=== PATIENT | male | born 1960 | race Caucasian/White ===

== ENCOUNTER 2022-09-10 19:46 | Emergency (ER) | payer OTHER, SELFPAY ==
[2022-09-10] VITALS (9 sets, daily range): BP systolic 166–200; BP diastolic 91–110; PULSE 47–55; RESP 13–20; TEMP 36.9; O2SAT 96–100; BMI 32.6
--- NOTE | 2022-09-10 20:15 | ECG_ITS ---
The [facility] Test Date: 2022-09-10 Pat Name: DUNG AKERS Department: Room: - Gender: Male Roll Tender: : 1960 Requested By: JIA MARIEE Order Number: [id number] Reading MD: MIKEY HAWTHORNE Measurements Intervals Social Circle Rate: 49 P: 30 IL: 186 QRS: 21 QRSD: 94 T: 16 QT: 438 QTc: 408 Interpretive Statements 1130 Sinus bradycardia 3434 Septal myocardial infarction, age undetermined 9150 abnormal ECG No previous ECG available for comparison Electronically Signed On 09-11-2022 6:24:12 EDT by MIKEY HAWTHORNE
--- NOTE | 2022-09-10 20:15 | ED_ITS ---
HPI - General Adult General Chief complaint: Neuro Symptoms/Deficit Stated complaint: UPPER EXTREMITY NUMBNESS Time Seen by Provider: 09/10/22 20:15 Source: patient Mode of arrival: walk-in History of Present Illness HPI narrative: the patient is coming to the Emergency Room with a left thumb and index finger tingling that started yesterday he denies any complaint of headache nausea vomiting or any other concerns, he admitted recently coming from vacation ,denying any neck, but he admits of having cervical disc disease The patient denies any weakness numbness tingling or any double vision or headache or chest pain He denies any other complains and he mentioned that he have a history of hypertension but has not been taking his blood pressure for the last few years because he did not want to take it Review of systems otherwise negative Related Data Previous Rx's Medication Instructions Recorded hydrochlorothiazide 25 mg tablet 25 mg PO DAILY #14 tabs 09/10/22 prednisone 20 mg tablet 20 mg PO DAILY 3 days #3 tabs 09/10/22 Allergies Allergy/AdvReac Type Severity Reaction Status Date / Time No Known Drug Allergies Allergy Verified 09/10/22 19:52 Review of Systems ROS Status of ROS 10 or more systems reviewed and unremarkable except as noted in history and below [facility] Medical History (Updated 09/10/22 @ 22:12 by Thelma Alejo MD) Exam Narrative Exam Narrative: Nurses notes and vital signs reviewed and patient is not hypoxic. General: Well-appearing and in no apparent distress. Skin: Warm, dry, no pallor noted. No rash. Head: Normocephalic, atraumatic. Neck: Supple, non-tender. Eye: Pupils are equal, round and EOMI. No scleral icterus. Ears, Nose, Mouth, and Throat: TM are clear, no nasal mucosal hypertrophy. Oral mucosa is moist, no posterior oropharynx erythema, uvula is mid-line Cardiovascular: Regular Rate and Rhythm without murmur, gallop or rub. Respiratory: No accessory muscle use or respiratory distress. Lungs are clear to auscultation, no wheezing, rales or rhonchi Chest Wall: no tenderness Back: No midline thoracic or lumbar vertebral tenderness. No CVA tenderness Musculoskeletal: normal ROM, no calf or popliteal tenderness, no lower extremity edema/swelling GI: Abdomen is soft, non-distended. Normal bowel sounds. No masses appreciated. No tenderness to palpation. No rebound, guarding, or rigidity noted. Neurological: A&O x4. No cranial nerve dysfunction observed. No truncal ataxia. Moves all extremities. Sensation intact. Psychiatric: Cooperative and interactive. Normal mood and affect. Constitutional Vital Signs - 24 hr 09/10/22 19:53 09/10/22 21:37 09/10/22 21:40 Temperature 98.4 F Pulse Rate 54 L 50 L Pulse Rate [Monitor] 55 L Respiratory Rate 16 20 15 Blood Pressure Blood Pressure [Left Arm] 188/110 H Pulse Oximetry 96 100 Oxygen Delivery Method Room Air 09/10/22 21:41 09/10/22 22:01 09/10/22 22:31 Temperature Pulse Rate 49 L 48 L 48 L Pulse Rate [Monitor] Respiratory Rate 13 14 14 Blood Pressure 194/96 H 166/103 H 185/98 H Blood Pressure [Left Arm] Pulse Oximetry 97 Oxygen Delivery Method 09/10/22 22:31 09/10/22 23:01 09/10/22 23:06 Temperature Pulse Rate 48 L 55 L 47 L Pulse Rate [Monitor] Respiratory Rate 19 16 15 Blood Pressure 185/98 H 200/91 H 191/100 H Blood Pressure [Left Arm] Pulse Oximetry 97 Oxygen Delivery Method 09/10/22 23:06 09/10/22 23:16 Temperature Pulse Rate 48 L 49 L Pulse Rate [Monitor] Respiratory Rate 18 17 Blood Pressure 191/100 H 190/92 H Blood Pressure [Left Arm] Pulse Oximetry Oxygen Delivery Method Course Vital Signs Vital signs: Vital Signs Temperature 98.4 F 09/10/22 19:53 Pulse Rate 55 L 09/10/22 19:53 Respiratory Rate 16 09/10/22 19:53 Blood Pressure 188/110 H 09/10/22 19:53 Pulse Oximetry 96 09/10/22 19:53 Oxygen Delivery Method Room Air 09/10/22 19:53 Temperature 98.4 F 09/10/22 19:53 Pulse Rate 49 L 09/10/22 23:16 Respiratory Rate 17 09/10/22 23:16 Blood Pressure 190/92 H 09/10/22 23:16 Pulse Oximetry 97 09/10/22 23:01 Oxygen Delivery Method Room Air 09/10/22 19:53 Medical Decision Making MDM Narrative Medical decision making narrative: EKG was showing sinus rhythm with a heart rate of [address] eleviation or depression The patient's CBC and chemistry as well as a troponin showed no elevation and there was no signs of organ damage The patient's CT of the cervical spine shows disc disease that is mild to moderate with no severe stenosis And a CT of the head shows multiple old infarcts which mostly correlate with the patient's elevated blood pressure The patient had tingling left thumb and index be secondary to peripheral neuropathy or secondary to his cervical disc disease he was started on three days of prednisone low-dose he also was started in his blood pressure medication hydrochlorothiazide and instructed to follow up with primary care doctor within a week The patient is to followup with primary care physician in next 2-3 days or to return to the emergency department should any of the signs or symptoms worsen or new symptoms develop. The patient agrees with the following Diagnosis and Treatment plan and the patient will be discharged home. Lab Data Labs: Lab Results 09/10/22 Range/Units 20:15 WBC 6.4 (4.0-11.0) 10^3/uL RBC 5.13 (4.70-6.10) 10^6/uL Hgb 15.7 (14.0-18.0) g/dL Hct 45.8 (42.0-54.0) % MCV 89.3 (80.0-94.0) fL MCH 30.6 (25.9-34.0) pg MCHC 34.3 (29.9-35.2) g/dL RDW 13.4 (11.0-15.0) % Plt Count 302 (150-450) 10^3/uL MPV 10.2 (9.5-13.5) fL Neut % (Auto) 63.0 (43.0-75.0) % Lymph % (Auto) 25.3 (20.5-60.0) % Jefferson % (Auto) 8.6 (1.7-12.0) % Eos % (Auto) 2.3 (0.9-7.0) % Baso % (Auto) 0.5 (0.2-2.0) % Neut # (Auto) 4.0 (1.4-6.5) 10^3/uL Lymph # (Auto) 1.6 (1.2-3.8) 10^3/uL Jefferson # (Auto) 0.6 (0.3-0.8) 10^3/uL Eos # (Auto) 0.2 (0.0-0.7) 10^3/uL Baso # (Auto) 0.0 (0.0-0.1) 10^3/uL Abs Immat Gran (auto) 0.02 (0.00-0.03) 10^3/uL Imm/Tot Granulo (auto) 0.3 (0.0-0.5) % Sodium 138 (136-145) mmol/L Potassium 3.9 (3.5-5.1) mmol/L Chloride 102 (98-107) mmol/L Carbon Dioxide 31.1 (21.0-32.0) mmol/L Anion Gap 8.8 BUN 13.0 (7.0-18.0) mg/dL Creatinine 0.95 (0.70-1.30) mg/dL Est GFR ( Amer) >60 (>=60) Est GFR (Non-Af Amer) >60 (>=60) BUN/Creatinine Ratio 13.7 Glucose 106 (74-106) mg/dL Calcium 9.3 (8.5-10.1) mg/dL Total Bilirubin 0.4 (0.2-1.0) mg/dL AST 29 (15-37) U/L ALT 46 (16-63) U/L Alkaline Phosphatase 105 (46-116) U/L Troponin I High Sens 19.5 (4.0-76.1) pg/mL Total Protein 7.3 (6.4-8.2) g/dL Albumin 3.4 (3.4-5.0) g/dL Globulin 3.9 g/dL Albumin/Globulin Ratio 0.9 Discharge Plan Discharge Chief Complaint: Neuro Symptoms/Deficit Clinical Impression: Hypertension, uncontrolled, Peripheral neuropathy Patient Disposition: Home, Self-Care Time of Disposition Decision: 22:10 Mode of Transportation: Private Vehicle Prescriptions / Home Meds: New hydrochlorothiazide 25 mg tablet 25 mg PO DAILY Qty: 14 0RF prednisone 20 mg tablet 20 mg PO DAILY 3 Days Qty: 3 0RF Instructions: Chronic Hypertension (ED) Stand Alone Forms: Portal Instructions Referrals: JIA MARIEE [Primary Care Provider] - 1 week Follow Up Appointments: [place] Discharge Date/Time: 09/10/22 23:25
--- NOTE | 2022-09-10 20:15 | CT_ITS ---
The [address] [address] Patient Name: DUNG AKERS MRN: [id number] date: 1960 Sex: M Assigned Patient Location: ER Current Patient Location: ER Accession/Order Number: [id number] Exam Date: 09/10/2022 20:27 Report Date: 09/10/2022 21:57 At the request of: INOCENCIA FELIZ Procedure: CT head/brain wo con EXAMINATION: CT head/brain wo con, 09/10/2022 8:27 PM EDT HISTORY: left hand numbness COMPARISON: None. TECHNIQUE: CT scan of the head was performed without IV contrast. CT dose reduction technique was used, including Automated Exposure Control. FINDINGS: BRAIN PARENCHYMA/CSF SPACES: Ventricles are normal in size for age. There is no hemorrhage, mass effect or midline shift. Diffuse atherosclerotic carotid artery calcification. Small hypodensities in the left caudate nucleus and lentiform nucleus consistent with chronic lacunar infarcts and/or dilated perivascular spaces. There is also a probable small chronic infarct in the right frontal subcortical white matter. PARANASAL SINUSES: Minimal mucosal thickening of ethmoid air cells consistent with chronic sinusitis. SKULL BASE AND CALVARIUM: Normal. EXTRACRANIAL SOFT TISSUES: Normal. IMPRESSION: 1. No acute intracranial abnormality. 2. Atherosclerotic calcification of the carotid arteries, small chronic lacunar infarcts and/or dilated perivascular spaces in the left caudate and lentiform nuclei and probable small chronic right frontal subcortical white matter infarct. Electronically authenticated by: MARLENE ISAAC Date: 09/10/2022 21:57
--- NOTE | 2022-09-10 20:16 | CT_ITS ---
The [address] [address] Patient Name: DUNG AKERS MRN: [id number] date: 1960 Sex: M Assigned Patient Location: ER Current Patient Location: ER Accession/Order Number: [id number] Exam Date: 09/10/2022 20:27 Report Date: 09/10/2022 21:57 At the request of: INOCENCIA FELIZ Procedure: CT cervical spine wo con EXAM: CT cervical spine wo con HISTORY: left hand numbness COMPARISON: None. TECHNIQUE: Unenhanced helical CT was performed of the cervical spine. Coronal and sagittal reconstructions were performed. FINDINGS: Vertebral body heights appear normal. There is mild disc space narrowing at C3-C4 and mild multilevel anterior osteophyte formation consistent with degenerative changes. Alignment appears normal. Posterior elements are intact. The dens is intact. The skull base appears unremarkable. There is no acute fracture or subluxation. There is mild to moderate bilateral neural foraminal stenosis at C3-C4 due to facet and uncovertebral hypertrophy and there is mild to moderate right-sided neural foraminal stenosis at C6-C7. Several mild posterior disc osteophyte complexes with mild effacement of ventral thecal sac. Visualized lung apices appear unremarkable. Soft tissues appear unremarkable. IMPRESSION: 1. No acute fracture or subluxation. 2. Degenerative changes as described above including mild to moderate bilateral neural foraminal stenosis at C3-C4 and mild to moderate right neural foraminal stenosis at C6-C7. Electronically authenticated by: MARLENE ISAAC Date: 09/10/2022 21:57
[2022-09-10 20:37] LABS: Basophils Percent Auto 0.5 % (0.2-2.0); Eosinophils Absolute Auto 0.2 10^3/uL (0.0-0.7); Eosinophils Percent Auto 2.3 % (0.9-7.0); Hematocrit 45.8 % (42.0-54.0); Hemoglobin 15.7 g/dL (14.0-18.0); Immature Granulocytes Abs Auto 0.02 10^3/uL (0.00-0.03); Immature Granulocytes Pct Auto 0.3 % (0.0-0.5); Lymphocytes Absolute Auto 1.6 10^3/uL (1.2-3.8); Lymphocytes Percent Auto 25.3 % (20.5-60.0); Mean Corpuscular HGB Conc 34.3 g/dL (29.9-35.2); Mean Corpuscular Hemoglobin 30.6 pg (25.9-34.0); Mean Corpuscular Volume 89.3 fL (80.0-94.0); Mean Platelet Volume 10.2 fL (9.5-13.5); Monocytes Absolute Auto 0.6 10^3/uL (0.3-0.8); Monocytes Percent Auto 8.6 % (1.7-12.0); Platelet Count 302 10^3/uL (150-450); Red Blood Count 5.13 10^6/uL (4.70-6.10); Red Cell Distribution Width 13.4 % (11.0-15.0); White Blood Count 6.4 10^3/uL (4.0-11.0)
[2022-09-10 20:51] LABS: Alanine Aminotransferase 46 U/L (16-63); Albumin Globulin Ratio 0.9; Albumin Level 3.4 g/dL (3.4-5.0); Alkaline Phosphatase 105 U/L (46-116); Anion Gap 8.8; Aspartate Amino Transferase 29 U/L (15-37); BUN Creatinine Ratio 13.7; Bilirubin Total 0.4 mg/dL (0.2-1.0); Calcium 9.3 mg/dL (8.5-10.1); Carbon Dioxide 31.1 mmol/L (21.0-32.0); Chloride 102 mmol/L (98-107); Estimated GFR (African America >60 (>=60); Estimated GFR (Non-African Ame >60 (>=60); Globulin 3.9 g/dL; Glucose 106 mg/dL (74-106); Potassium 3.9 mmol/L (3.5-5.1); Sodium 138 mmol/L (136-145); Total Protein 7.3 g/dL (6.4-8.2); Troponin I High Sensitivity 19.5 pg/mL (4.0-76.1)
[2022-09-10] MEDS: HYDROCHLOROTHIAZIDE 25 MG TABLET PO (23:04)
== END 2022-09-10 23:25 | disposition home or self-care (01) ==
PROVIDERS: Emergency Provider Emergency Medicine; PCP Nurse Practitioner Family
DX: I10 Essential (primary) hypertension (principal); G62.9 Polyneuropathy, unspecified
CPT/HCPCS: 36415; 70450; 72125; 80053; 84484; 85025; 93005; 99285